=== PATIENT | female | born 1980 | race Caucasian/White ===

== ENCOUNTER 2018-11-17 09:06 | Emergency (ER) | payer MEDICAID, OTHER ==
[~2018-11-17] VITALS: Ht 162.6 cm; Wt 68.6 kg
[~2018-11-17 09:06] MED LIST: HYDR-3707 PO; IBUP-2071 PO; PREN1TAB80 PO
[2018-11-17] MEDS ORDERED: PERTUSS(ACELL),DIPH,TET VAC/PF 0.5 ML VIAL IM ONE (12:15)
[2018-11-17 13:07] VITALS: BP 138/84
== END 2018-11-17 13:17 | disposition home or self-care (01) ==
LOC: EMS 09:07
DX: S01.01XA Laceration without foreign body of scalp, initial encounter (principal); W22.8XXA Striking against or struck by other objects, initial encounter; Y93.89 Activity, other specified; Y92.69 Other specified industrial and construction area as the place of occurrence of the external cause; Y99.0 Civilian activity done for income or pay
CPT/HCPCS: 90471; 90715

== ENCOUNTER 2025-07-15 13:48 | Emergency (ER) | payer OTHER ==
[~2025-07-15] VITALS: Ht 162.6 cm; Wt 65.9 kg
[2025-07-15 15:45] VITALS: BP 142/86; PULSE 75; RESP 18; TEMP 98.2; O2SAT 99
[2025-07-15] MEDS: FLUCONAZOLE 150 MG TABLET PO ONE (15:49)
== END 2025-07-15 16:02 | disposition home or self-care (01) ==
LOC: EMS 13:48
DX: B37.31 Acute candidiasis of vulva and vagina (principal); R19.00 Intra-abdominal and pelvic swelling, mass and lump, unspecified site; N39.0 Urinary tract infection, site not specified; Z98.890 Other specified postprocedural states
CPT/HCPCS: 99283